=== PATIENT | female | born 1980 | race Hispanic/Latino ===

== ENCOUNTER 2019-11-21 21:03 | Emergency (ER) | payer SELFPAY ==
[~2019-11-21 21:03] MED LIST: Iopamidol 370 76% 100 ML VIAL ONE
[2019-11-21 22:16] LABS: Hemoglobin 14.1 g/dL (12.0-16.0); Mean Corpuscular HGB CONC 33.6 g/dL (32.0-36.0); Mean Corpuscular Hemoglobin 28.1 pg (27.0-31.0); Mean Corpuscular Volume 83.7 fL (78.0-98.0); Mean Platelet Volume 9.6 fL (7.4-10.4); Platelet Count 160 thou/uL (130-400); White Blood Cell (WBC) Count 8.1 thou/uL (4.8-10.8)
[2019-11-21 22:17] LABS: BHCG - Serum Negative (NEGATIVE); Pregs Control Background? CLEAR/WHITE (CLR/WHITE); Pregs Control Bar Appear? YES (CONTROL BAR)
[2019-11-21 22:32] LABS: ALT (SGPT) 17 U/L (8-55); AST (SGOT) 19 U/L (5-34); Alkaline Phosphatase 90 U/L (40-110); Anion Gap 13 mmol/L (10-20); BUN (Urea Nitrogen) 11 mg/dL (7.0-18.7); Bilirubin, Total Less than 0.2 mg/dL (0.2-1.2); Calc. Creatinine Clearance 0 mL/min (70-130); Carbon Dioxide 22 mmol/L (22-29); Chloride 106 mmol/L (98-107); Estimated GFR-MDRD 60; Globulin 3.4 g/dL (2.4-3.5); Glucose 138 mg/dL (70-105); Lipase 17 U/L (8-78); Potassium 4.4 mmol/L (3.5-5.1); Protein, Total 7.4 g/dL (6.0-8.3); Sodium 137 mmol/L (136-145)
[2019-11-21 22:38] LABS: Band 22 % (5-11); Lymphocytes 6 % (21-51); MDiff Complete? YES; Monocytes 4 % (0-10); Neutrophil 68 % (42-75); Platelet Morphology Comment Appears Adequate
[2019-11-21] MEDS ORDERED: Morphine 4 MG/ML VIAL ONE (22:45)
--- NOTE | 2019-11-22 10:00 | CT ---
CT ABDOMEN AND PELVIS PERFORMED WITH CONTRAST ENHANCEMENT: HISTORY: Left lower quadrant and suprapubic pain. FINDINGS: The lung bases are clear. The liver shows some mild fatty change. It measures 2 cm in length mainly related to somewhat elonga marquita-appearing right lobe. The spleen is within normal limits. The pancreas shows no evidence of mas s. Gallbladder region appears unremarkable. Right and left adrenal glands are normal. There is some cortical scarring involving both kidneys. B ilateral renal calculi are seen more prominent on the right. Some are punctate. Some of the larger calculi are in the 6 mm range. No obstruction or renal calculi. No significant periaortic or mesent miranda lymphadenopathy. There is colonic diverticulosis with inflammatory change related to the divert icular disease at the junction of the descending and sigmoid colon. There is a tiny area of containe d perforation. There is some minimal soft tissue density in this region. This is consistent with a small developing somewhat crescentic-shaped abscess collection. This measures only 4-5 mm in thickne ss. There is some free fluid within the pelvis associated with this. The endometrium is somewhat th ickened probably related to stage of menstrual cycle. The appendix is normal in appearance. IMPRESSION: 1. Diverticulitis at the junction of the sigmoid and descending colon. There is a tiny fluid collec tion with air seen adjacent to this area consistent with a small developing abscess. 2. Fatty changes of the liver which is borderline size. 3. Cortical scarring involving both kidneys with bilateral renal calculi. POS: [facility]
== END 2019-11-21 23:58 | disposition home or self-care (01) ==
LOC: ERS 21:03
DX: K57.32 Diverticulitis of large intestine without perforation or abscess without bleeding (principal); N94.6 Dysmenorrhea, unspecified; E03.9 Hypothyroidism, unspecified; I10 Essential (primary) hypertension; Z79.899 Other long term (current) drug therapy
CPT/HCPCS: 36415; 74177; 80053; 83605; 83690; 84703; 85025; 96374; J2270; Q9967

== ENCOUNTER 2019-11-23 21:51 | Inpatient (IN) | payer OTHER, SELFPAY ==
[2019-11-23] MEDS ORDERED: Morphine 4 MG/ML VIAL ONE (23:11)
[2019-11-23] MEDS ORDERED: metroNIDAZOLE 500 MG/100 ML BAG ONE (23:12)
[2019-11-23] MEDS ORDERED: Ciprofloxacin HCL/Dexameth Otic Drops 7.5 ml Bottle ONE (23:12)
[2019-11-23 23:21] LABS: Hemoglobin 12.9 g/dL (12.0-16.0); Mean Corpuscular HGB CONC 30.9 g/dL (32.0-36.0); Mean Corpuscular Hemoglobin 25.9 pg (27.0-31.0); Mean Platelet Volume 9.8 fL (7.4-10.4); Platelet Count 167 thou/uL (130-400); RBC Distribution Width 13.2 % (11.5-14.5); Red Blood Cell (RBC) Count 4.99 mill/uL (4.20-5.40)
[2019-11-23 23:22] LABS: ALT (SGPT) 17 U/L (8-55); AST (SGOT) 21 U/L (5-34); Albumin 3.8 g/dL (3.5-5.0); Alkaline Phosphatase 95 U/L (40-110); Anion Gap 16 mmol/L (10-20); BUN (Urea Nitrogen) 13 mg/dL (7.0-18.7); Band 30 % (5-11); Bilirubin, Total 0.4 mg/dL (0.2-1.2); Calc. Creatinine Clearance 0 mL/min (70-130); Calcium 9.1 mg/dL (7.8-10.44); Carbon Dioxide 21 mmol/L (22-29); Chloride 104 mmol/L (98-107); Estimated GFR-MDRD 57; Globulin 3.8 g/dL (2.4-3.5); Glucose 114 mg/dL (70-105); Lymphocytes 9 % (21-51); MDiff Complete? YES; Monocytes 3 % (0-10); Neutrophil 58 % (42-75); Platelet Morphology Comment Appears Adequate; Potassium 3.6 mmol/L (3.5-5.1); Protein, Total 7.6 g/dL (6.0-8.3); Sodium 137 mmol/L (136-145)
[2019-11-24] MEDS ORDERED: hydrALAZINE 20 MG/ML VIAL SLOW IVP PRN (01:07)
[2019-11-24] MEDS ORDERED: Ondansetron PF 4 MG/2 ML Vial IVP PRN (01:07)
[2019-11-24] MEDS ORDERED: Morphine 2 MG/ML SYRINGE SLOW IVP PRN (01:07)
[2019-11-24] MEDS ORDERED: Ondansetron ODT 4 MG TAB PO PRN (01:07)
--- NOTE | 2019-11-24 01:38 | HP ---
TIME: 0100 hours. HISTORY OF PRESENT ILLNESS: Meka Jeffers is a 39-year-old female, morbidly obese, had an onset of abdominal pain five days ago, presented to the emergency room two days ago, evaluated at a heart rate of 123, respiratory rate 18, and 99 degrees. White count of 8 and had a CAT scan on 11/21/2019, demonstrating changes of diverticulitis. She was discharged home prior to the official reading of the CAT scan. She was not sent home with any antibiotics. She is called back to the emergency room when this became apparent. She was called in the early afternoon 2 or 3 o'clock this afternoon, but arrived at midnight. She is complaining of pain over most of her abdomen, worse on her left side. Her white count now is 16,000 and hemoglobin 12. Basic metabolic profile is unremarkable. She had 30% bands. She is tachycardic to 120 to 130. She is 113 kg. The patient is 2, para 1, miscarriage 1 with her baby at five months of age. ALLERGIES: NONE. SOCIAL HISTORY: Tobacco none. Alcohol none. MEDICATIONS: 1. Levothyroxine. 2. Antihypertensive. PAST SURGICAL HISTORY: Noncontributory. PAST MEDICAL HISTORY: Hypertension. PHYSICAL EXAMINATION: VITAL SIGNS: 113 kg. Blood pressure 190/85, respiratory rate 18, and heart rate 110. HEAD, EARS, EYES, NOSE, AND THROAT: Unremarkable. The patient is morbidly obese. LUNGS: Clear to auscultation. No wheezing. CARDIAC: Sinus tachycardia. No murmur. No gallop. ABDOMEN: Obese and protuberant. Tenderness diffusely, more so left abdomen and left lower quadrant with guarding. EXTREMITIES: Unremarkable. No ankle edema. NEUROLOGIC: Intact. LYMPH: No lymphadenopathy in neck, axilla, or groins. ASSESSMENT AND PLAN: 1. Diverticulitis. She had a CAT scan two days ago, but she was diffusely tender with her leukocytosis and left shift. We will repeat her CAT scan, which she has received Zosyn at the least. She would be admitted for intravenous antibiotics and n.p.o., but pending her CAT scan, she may need emergent operative intervention. 2. Hypertension. 3. Morbid obesity. 4. Metabolic syndrome. Job ID: [id number]
[2019-11-24 02:09] VITALS: BMI 44.3
[2019-11-24] MEDS: Morphine 4 MG/ML VIAL SLOW IVP PRN ×4 (02:32→20:29)
[2019-11-24] MEDS: Ketorolac Tromethamine 30 MG/ML VIAL IVP PRN ×3 (02:32→20:29)
[2019-11-24] MEDS: Piperacillin/Tazobactam 4.5 GM in Sodium Chloride 0.9% 100 ML IVPB SCH ×4 (02:33→20:30)
[2019-11-24 06:12] LABS: ALT (SGPT) 16 U/L (8-55); AST (SGOT) 21 U/L (5-34); Albumin 3.1 g/dL (3.5-5.0); Alkaline Phosphatase 78 U/L (40-110); Anion Gap 13 mmol/L (10-20); BUN (Urea Nitrogen) 10 mg/dL (7.0-18.7); Bilirubin, Total 0.3 mg/dL (0.2-1.2); Calc. Creatinine Clearance 137 mL/min (70-130); Calcium 7.9 mg/dL (7.8-10.44); Carbon Dioxide 23 mmol/L (22-29); Chloride 104 mmol/L (98-107); Estimated GFR-MDRD 66; Globulin 3.2 g/dL (2.4-3.5); Glucose 103 mg/dL (70-105); Potassium 3.5 mmol/L (3.5-5.1); Protein, Total 6.3 g/dL (6.0-8.3); Sodium 136 mmol/L (136-145)
[2019-11-24] MEDS: Lactated Ringer's 1,000 ML IV SCH ×2 (06:39→17:00)
[2019-11-24] MEDS: Pantoprazole 40 MG VIAL IVP SCH (08:35)
--- NOTE | 2019-11-24 09:57 | CT ---
PRELIMINARY REPORT/[facility]/AFTER HOURS PROCEDURE CT ABDOMEN AND PELVIS WITH INTRAVENOUS CONTRAST: HISTORY: Patient presents with left upper and left lower quadrant pain. Patient was seen for the same pain 2 d ays ago. At that time she had normal labs. CT scan of her abdomen and pelvis was obtained. She was di scharged home in good condition. Her physician called her today to let her know that the CT scan show ed diverticulitis with a microperforation. He advised that she return to the ER for reevaluation. COMPARISON: 11/21/2019 FINDINGS: Lung bases: Small left lower lobe opacity again seen. Trace pleural effusions bilaterally. Minimal dependent atelectasis bilaterally. Mild cardiomegaly. Liver: Enlarged measuring 24.2 cm in length. No focal lesions. Gallbladder/bile ducts: Unremarkable. No calcified stone. No ductal dilation. Pancreas: Unremarkable. Spleen: Unremarkable. Adrenal glands: Unremarkable. Kidneys: Renal cortical scarring and multiple calculi bilaterally. No hydronephrosis or hydroureter. Stomach and bowel: Colonic diverticulosis. Acute diverticulitis of the descending/sigmoid colon junct ion is again seen. Increased pericolic fat stranding with mildly increased size of the adjacent C-sh aped air-containing fluid collection, measuring 1.7 (TR) x 5.8 (length) cm. No obstruction. Mid to lower abdominal small bowel loops are mildly thickened with mesenteric fat infiltration. Appendix: Normal-appearing appendix. No CT evidence for appendicitis. Retroperitoneum: Mild pelvic fluid. Lymph nodes: Multiple small mesenteric and ileocecal lymph nodes. Pelvic Organs: Unremarkable. Vasculature: No aortic aneurysm. Body wall: Tiny fat containing umbilical hernia. Bones: No fracture or suspicious osseous abnormality. IMPRESSION: 1. Persistent diverticulitis at descending/sigmoid colon junction, with increased surrounding inflamm ation. Adjacent fluid collection with air has mildly increased in size, consistent with developing a bscess. 2. Small bowel thickening with mesenteric fat infiltration, likely changes related to acute peritonit is. ELECTRONICALLY SIGNED BY: Libertad Weeks M.D. Nov 24, 2019 1:55:13 AM CDT This report is intended for review by the ordering physician only, in accordance of law. If you recei ve this report in error, please call [facility] at [phone]. FINAL REPORT CT ABDOMEN AND PELVIS: FINDINGS: Inflammatory change involving the lower descending colon in the left lower quadrant, consistent with diverticulitis, again noted. Small fluid collection and extraluminal gas is present, indicating small contained perforation and/or developing abscess. I am in agreement with the preliminary report. CODE QA POS: [facility]
[2019-11-24] MEDS ORDERED: Iopamidol-370 76% 500 ML 1 ML ONE (14:13)
--- NOTE | 2019-11-24 15:06 | PRG ---
DATE OF SERVICE: SUBJECTIVE: Meka Jeffers is doing much better today after being on antibiotics for less than 24 hours. She is afebrile. Heart rate 99 to 103. Labs were not rechecked. She is having left pain. Repeat CAT scan in the emergency room last night revealed absence of any findings of peritonitis or pneumoperitoneum or free fluid. She does have a very small fluid collection in her colon, probably 2 smaller drain 1 x 4.5 cm. We will discuss with Radiology tomorrow, but at this point, I think this should be managed with IV antibiotics and to improve her. Would continue her on bowel rest. At this time, ice chips. Encouraged out of bed and up in chair. Lovenox prophylaxis. OBJECTIVE: LUNGS: Clear to auscultation. CARDIAC: Regular rate and rhythm without murmur or gallop. ABDOMEN: Obese, soft. Much less tender with guarding in her left abdomen, more severe in her left lower quadrant. Abdomen is much less tender than last night. Job ID: [id number]
[2019-11-24] MEDS: Enoxaparin Sodium 40 MG/0.4 ML SYRINGE SC SCH (20:30)
[2019-11-25] MEDS: Lactated Ringer's 1,000 ML IV SCH ×2 (01:53→05:02)
[2019-11-25] MEDS: Piperacillin/Tazobactam 4.5 GM in Sodium Chloride 0.9% 100 ML IVPB SCH ×4 (01:58→19:51)
[2019-11-25] MEDS: Ketorolac Tromethamine 30 MG/ML VIAL IVP PRN ×2 (02:07→14:21)
[2019-11-25] MEDS: Morphine 4 MG/ML VIAL SLOW IVP PRN ×5 (02:07→23:53)
[2019-11-25 06:25] LABS: ALT (SGPT) 17 U/L (8-55); AST (SGOT) 27 U/L (5-34); Alkaline Phosphatase 70 U/L (40-110); Anion Gap 11 mmol/L (10-20); BUN (Urea Nitrogen) 10 mg/dL (7.0-18.7); Bilirubin, Total 0.6 mg/dL (0.2-1.2); Calc. Creatinine Clearance 163 mL/min (70-130); Calcium 7.9 mg/dL (7.8-10.44); Carbon Dioxide 24 mmol/L (22-29); Chloride 106 mmol/L (98-107); Estimated GFR-MDRD 80; Globulin 3.1 g/dL (2.4-3.5); Glucose 84 mg/dL (70-105); Protein, Total 6.1 g/dL (6.0-8.3); Sodium 138 mmol/L (136-145)
[2019-11-25] MEDS: Pantoprazole 40 MG VIAL IVP SCH (08:25)
[2019-11-25] MEDS ORDERED: Potassium Chloride 20 MEQ TAB PO SCH ×3 (09:00→22:00)
[2019-11-25 09:28] LABS: #Monocytes 0.4 thou/uL (0.11-0.59); #Neutrophils 4.6 thou/uL (1.40-6.50); %Basophils 0.5 % (0.0-1.0); %Eosinophils 0.2 % (0.0-10.0); %Lymphocytes 16.2 % (21.0-51.0); %Monocytes 7.2 % (0.0-10.0); Hemoglobin 12.2 g/dL (12.0-16.0); Mean Corpuscular Hemoglobin 27.5 pg (27.0-31.0); Mean Corpuscular Volume 85.9 fL (78.0-98.0); Mean Platelet Volume 8.9 fL (7.4-10.4); Platelet Count 157 thou/uL (130-400); RBC Distribution Width 13.3 % (11.5-14.5); Red Blood Cell (RBC) Count 4.45 mill/uL (4.20-5.40)
--- NOTE | 2019-11-25 13:59 | PRG ---
DATE OF SERVICE: 11/25/2019 SUBJECTIVE: Meka Jeffers is doing pretty well. She still complains of pain, although it is improved. OBJECTIVE: VITAL SIGNS: Temperature 98.9 degrees, heart rate 90, blood pressure 142/78. LUNGS: Clear to auscultation. CARDIAC: Regular rate and rhythm without murmur or gallop. ABDOMEN: Morbidly obese. Slight tenderness in her left lower quadrant abdomen with guarding, much improved from admission, but still significantly tender. LABORATORY DATA: White count this morning is 6, hemoglobin 12. Basic metabolic profile normal except for potassium 3.0, which is replaced for hypokalemia. ASSESSMENT AND PLAN: Diverticulitis. She has a small fluid collection. We will discuss with Radiology, but I doubt this can be successfully drained as small as is now. We will treat with intravenous antibiotics for now. Job ID: [id number]
[2019-11-25] MEDS: Enoxaparin Sodium 40 MG/0.4 ML SYRINGE SC SCH (19:52)
[2019-11-26] MEDS: Lactated Ringer's 1,000 ML IV SCH ×4 (00:28→18:16)
[2019-11-26] MEDS ORDERED: Guaifenesin DM 100-10/5 ML UDCUP PO PRN (00:30)
[2019-11-26] MEDS: Piperacillin/Tazobactam 4.5 GM in Sodium Chloride 0.9% 100 ML IVPB SCH ×4 (01:39→20:09)
[2019-11-26 05:55] LABS: #Lymphocytes 1.1 thou/uL (1.20-3.40); #Monocytes 0.4 thou/uL (0.11-0.59); #Neutrophils 4.2 thou/uL (1.40-6.50); %Basophils 0.3 % (0.0-1.0); %Eosinophils 0.1 % (0.0-10.0); %Lymphocytes 19.6 % (21.0-51.0); %Monocytes 6.1 % (0.0-10.0); %Neutrophils 73.9 % (42.0-75.0); Hemoglobin 11.7 g/dL (12.0-16.0); Mean Corpuscular HGB CONC 32.5 g/dL (32.0-36.0); Mean Corpuscular Hemoglobin 27.4 pg (27.0-31.0); Mean Corpuscular Volume 84.4 fL (78.0-98.0); Mean Platelet Volume 8.5 fL (7.4-10.4); Platelet Count 163 thou/uL (130-400); RBC Distribution Width 13.4 % (11.5-14.5); Red Blood Cell (RBC) Count 4.25 mill/uL (4.20-5.40); White Blood Cell (WBC) Count 5.8 thou/uL (4.8-10.8)
[2019-11-26 06:15] LABS: Anion Gap 12 mmol/L (10-20); BUN (Urea Nitrogen) 8 mg/dL (7.0-18.7); Calc. Creatinine Clearance 169 mL/min (70-130); Calcium 7.7 mg/dL (7.8-10.44); Carbon Dioxide 22 mmol/L (22-29); Chloride 104 mmol/L (98-107); Estimated GFR-MDRD 84; Glucose 99 mg/dL (70-105); Potassium 3.5 mmol/L (3.5-5.1); Sodium 134 mmol/L (136-145)
[2019-11-26] MEDS: Diabetic Tussin DM 5 ML UDCUP PO PRN ×3 (06:44→14:29)
[2019-11-26] MEDS: Pantoprazole 40 MG VIAL IVP SCH (08:07)
[2019-11-26 12:28] LABS: SARS-CoV-2 MS2 Positive; SARS-CoV-2 N Gene Positive; SARS-CoV-2 S Gene Positive; SARS-CoV-2 orf1ab Positive
--- NOTE | 2019-11-26 14:01 | RAD ---
PORTABLE CHEST: HISTORY: Shortness of breath. COVID positive. COMPARISON: 06/18/2012 film. FINDINGS: There are bilateral patchy peripheral infiltrates consistent with the history of COVID pneumonia. IMPRESSION: Bilateral patchy alveolar peripheral infiltrates throughout both lungs. POS: AH
[2019-11-26] MEDS ORDERED: REMDESIVIR IV SCH (17:15)
[2019-11-26] MEDS ORDERED: SODIUM CHLORIDE 0.9% IV SCH (17:15)
--- NOTE | 2019-11-26 17:23 | PDOC.HOSPP ---
- Subjective Encounter Date: 11/26/19 Encounter Time: 17:00 Subjective: Pt. seen for management of medical comorbidities. Denies any complaints other than being hungry and a slight dry cough. - Objective Vital Signs & Weight: Vital Signs (12 hours) Temp Pulse Resp BP Pulse Ox 11/26/19 13:00 98.5 F 90 20 140/97 H 96 11/26/19 09:00 98.2 F 91 20 142/87 H 94 L 11/26/19 08:00 94 L Weight Weight 242 lb 6.4 oz I&O: 11/25/19 11/26/19 11/27/19 06:59 06:59 06:59 Intake Total 1200 2840 Balance 1200 2840 Result Diagrams: 11/26/19 05:34 11/26/19 05:34 Radiology Reviewed by me: Yes (Chest xray: bilateral patchy alveolar peripheral infiltrates throughout) Hospitalist ROS - Review of Systems Constitutional: denies: fever, chills, sweats, weakness, malaise, other Eyes: denies: pain, vision change, conjunctivae inflammation, eyelid inflammation, redness, other ENT: denies: ear pain, ear discharge, nose pain, nose discharge, nose congestion , mouth pain, mouth swelling, throat pain, throat swelling, other Respiratory: reports: cough, dry Cardiovascular: denies: chest pain, palpitations, orthopnea, paroxysmal noc. dyspnea, edema, light headedness, other Gastrointestinal: denies: nausea, vomiting, abdominal pain, diarrhea, constipation, melena, hematochezia, other Genitourinary: denies: dysuria, frequency, incontinence, hematuria, retention, other Musculoskeletal: denies: neck pain, shoulder pain, arm pain, back pain, hand pain, leg pain, foot pain, other Skin: denies: rash, lesions, tenzin, bruising, other Neurological: denies: weakness, numbness, incoordination, change in speech, confusion, seizures, other All other systems reviewed; all pertinent +/- noted in HPI/Subj - Medication Medications: NKDA Active Medications Generic Name Dose Route Start Last Admin Trade Name Freq PRN Reason Stop Dose Admin Enoxaparin Sodium 40 mg 11/24/19 21:00 11/25/19 19:52 Lovenox SC 40 mg 2100 KRISTY Administration Guaifenesin/Dextromethorphan 10 ml 11/26/19 06:35 11/26/19 14:29 Diabetic Tussin Dm PO 10 ml Q4H PRN Administration Cough Lactated Ringer's 1,000 mls @ 150 mls/hr 11/24/19 01:15 11/26/19 12:43 Lactated Ringer's IV 1,000 mls .[id number] KRISTY Administration Piperacillin Sod/Tazobactam 100 mls @ 200 mls/hr 11/24/19 02:00 11/26/19 12: 48 Sod 4.5 gm/ Sodium Chloride IVPB 100 mls 0200,0800,1400,2000 KRISTY Administration Ketorolac Tromethamine 30 mg 11/24/19 01:10 11/25/19 14:21 Toradol IVP 11/29/19 01:11 30 mg Q6H PRN Administration Pain Morphine Sulfate 4 mg 11/24/19 01:07 11/25/19 23:53 Morphine SLOW IVP 4 mg Q2H PRN Administration Moderate Pain (4-6) Pantoprazole Sodium 40 mg 11/24/19 09:00 11/26/19 08:07 Protonix IVP 40 mg DAILY KRISTY Administration - Exam General Appearance: NAD, awake alert Eye: PERRL, anicteric sclera ENT: normocephalic atraumatic, moist mucosa Neck: supple, no JVD, no lymphadenopathy Heart: RRR, no murmur, no gallops, no rubs Respiratory: CTAB, no wheezes, no rales, no ronchi, normal chest expansion Respiratory - other findings: cough Gastrointestinal: soft, non-tender, non-distended Extremities: no cyanosis, no edema Psychiatric: normal affect, normal behavior Hosp A/P (1) COVID-19 Code(s): U07.1 - COVID-19 Status: Acute (2) Hypothyroid Code(s): E03.9 - HYPOTHYROIDISM, UNSPECIFIED Status: Chronic (3) HTN (hypertension) Code(s): I10 - ESSENTIAL (PRIMARY) HYPERTENSION Status: Chronic - Plan Covid 19 positive test, dry cough, lungs CTAB ID consulted ferritin, CRP and d-dimer ordered PRN cough medication available Hypothyroidism restart home medication HTN stable at this time K was low this am, can restart HCTZ once level stabilized GI and VTE prophylaxis in place pt discussed with Dr. Gamez
--- NOTE | 2019-11-26 17:29 | PRG ---
DATE OF SERVICE: 11/26/2019 SUBJECTIVE: 100.2 degrees, 99, 18, 140/97. Her white count this morning is 5.8, hemoglobin 11.7. Basic metabolic profile essentially normal. The patient last night was complaining of cough. The nurse called me and she was given Robitussin. The chest x-ray ordered this morning and a COVID test ordered. COVID results returned positive. Chest x-ray reveals diffuse infiltrates consistent with COVID. The patient states that she feels better regarding her diverticulitis and left-sided abdominal pain. The CAT scan was reviewed with Radiology. She has extra colonic punctate free air that is loculated adjacent to the diverticulitis process. There is a scant amount of fluid, but nothing large enough to percutaneously drain. OBJECTIVE: LUNGS: Clear to auscultation, rhonchi diffusely. CARDIAC: Regular rate and rhythm. ABDOMEN: Obese, less tender than previously. Today, mild tenderness in left mid to lower abdomen. Guarding much less severe. ASSESSMENT AND PLAN: 1. COVID positive with diffuse pulmonary infiltrates. Consult Dr. Mauro and Medical. 2. Diverticulitis. The patient has an extra colonic collection that should resolve with antibiotics. Percutaneous drainage is not appropriate as the fluid collection is so small. Clinically, she is doing better from her diverticulitis and would continue intravenous antibiotics that may be adjusted by Dr. Mauro. No indication for surgery or procedures at this time and this should resolve with antibiotics, although repeat CAT scan could be considered pending clinical course. We would like to avoid repeat CAT scans unless absolutely necessary. 3. Morbid obesity, 44 BMI, 242 pounds, 5 feet 2 inches. Job ID: [id number]
[2019-11-26] MEDS: Benzonatate 100 MG CAP PO PRN ×2 (18:16→20:47)
--- NOTE | 2019-11-26 19:57 | CON ---
DATE OF CONSULTATION: 11/26/2019 REASON FOR CONSULTATION: COVID pneumonia and diverticulitis. HISTORY OF PRESENT ILLNESS: A 39-year-old who has a previous episode of abdominal pain in the left lower quadrant, which she treated at home with ibuprofen about 6 months ago. She got better and then she developed recrudescence of that pain this past . This was about 2 days before admission, so she started to take ibuprofen, but this time it did not get better. She went to the emergency room and a CT scan showed diverticulitis with microperforation, so she was returned to the ER and at that time, she was not having cough, but she was having chills, but no fever. She had general malaise and had some frequent bowel movements. No genitourinary symptoms. No joint symptoms or skin disorder. PAST MEDICAL HISTORY: Hypothyroidism, obesity, hypertension. SOCIAL HISTORY: Lives with her 2 children and her in [place]. Never smoker. ALLERGIES: NONE. MEDICATION: Levothyroxine. CURRENT MEDICATIONS: 1. Lovenox. 2. Apresoline. 3. Toradol. 4. Morphine. 5. Zofran. 6. Protonix. 7. Zosyn. PHYSICAL EXAMINATION: VITAL SIGNS: 101.1, O2 sats have ranged from 97 on arrival, now they are trending down. She had to be started on O2 per nasal cannula. SKIN: Normal. She has a peripheral IV access and she is voiding in the toilet. LYMPH: No lymphadenopathy. HEENT: Ocular movements conjugate. Oral cavity normal. NECK: Supple. LUNGS: Symmetric air entry. I did not perceive any obvious crackles or wheezing. CARDIAC: S1-S2 regular rate. ABDOMEN: With moderate tenderness in the left lower quadrant with guarding. No ascites. No bladder distention. GENITOURINARY: No genital abnormalities. EXTREMITIES: No joint inflammatory activity. Moves extremities equally. Cognitive function appears to be intact. She speaks in full sentences and is oriented. LABORATORY DATA: White cell count 16,000 down to 5.8, hemoglobin 11.7, platelets 163. Sodium 134, creatinine 0.76 and transaminases normal. COVID positive. IMAGING: Chest x-ray with diffuse bilateral infiltrates. Abdomen and pelvis CT with persistent diverticulitis, increasing surrounding inflammation, adjacent fluid collection with air, mildly increased in size. Small bowel thickening with mesenteric fat infiltration. ASSESSMENT: 1. Acute diverticulitis with microperforation. 2. COVID pneumonia. DISCUSSION: The patient is responding to antimicrobial therapy and hopefully can be transitioned eventually to oral Cipro and Flagyl combination for outpatient management. In relationship with the COVID, we will go and start remdesivir and monitor clinical progress. I am going to withhold corticosteroids, because of her diverticulitis but may have to start Decadron. Job ID: [id number]
[2019-11-26] MEDS: Enoxaparin Sodium 40 MG/0.4 ML SYRINGE SC SCH (20:10)
[2019-11-26] MEDS: Ketorolac Tromethamine 30 MG/ML VIAL IVP PRN (23:59)
[2019-11-27] MEDS: Lactated Ringer's 1,000 ML IV SCH ×2 (00:25→06:26)
[2019-11-27] MEDS: Piperacillin/Tazobactam 4.5 GM in Sodium Chloride 0.9% 100 ML IVPB SCH ×4 (02:36→20:30)
[2019-11-27] MEDS: Levothyroxine Sodium 25 MCG TAB PO SCH (06:23)
[2019-11-27 07:28] LABS: ALT (SGPT) 29 U/L (8-55); AST (SGOT) 41 U/L (5-34); Alkaline Phosphatase 76 U/L (40-110); Anion Gap 11 mmol/L (10-20); BUN (Urea Nitrogen) 7 mg/dL (7.0-18.7); Bilirubin, Direct 0.5 mg/dL (0.1-0.3); Bilirubin, Total 0.6 mg/dL (0.2-1.2); Calc. Creatinine Clearance 176 mL/min (70-130); Calcium 8.2 mg/dL (7.8-10.44); Carbon Dioxide 27 mmol/L (22-29); Chloride 105 mmol/L (98-107); Estimated GFR-MDRD 88; Glucose 98 mg/dL (70-105); Potassium 3.7 mmol/L (3.5-5.1); Protein, Total 6.1 g/dL (6.0-8.3); Sodium 139 mmol/L (136-145)
[2019-11-27] MEDS ORDERED: Dexamethasone 20 MG/5 ML VIAL SLOW IVP SCH (09:00)
[2019-11-27] MEDS: Ketorolac Tromethamine 30 MG/ML VIAL IVP PRN ×2 (09:58→17:42)
[2019-11-27] MEDS: Pantoprazole 40 MG VIAL IVP SCH (09:59)
[2019-11-27] MEDS: Benzonatate 100 MG CAP PO PRN ×2 (10:07→21:32)
[2019-11-27] MEDS ORDERED: SODIUM CHLORIDE 0.9% IV SCH (12:00)
[2019-11-27] MEDS ORDERED: REMDESIVIR IV SCH (12:00)
[2019-11-27] MEDS ORDERED: HYDROcodone/Chlorphen Polis 5 ML UDCUP PO PRN (16:01)
[2019-11-27] MEDS ORDERED: Acetaminophen 325 MG TAB PO PRN (16:02)
--- NOTE | 2019-11-27 16:04 | PDOC.HOSPP ---
- Subjective Encounter Date: 11/27/19 Subjective: Patient is generally feeling well. She continues to have some cough. She is also having some pain in the lower back. She believes that from lying up in the bed too much. She does not feel significantly short of breath. She is scared about her COVID diagnosis. - Objective Vital Signs & Weight: Vital Signs (12 hours) Temp Pulse Resp BP Pulse Ox 11/27/19 09:00 98.2 F 88 16 156/94 H 96 Weight Weight 242 lb 6.4 oz I&O: 11/26/19 11/27/19 11/28/19 06:59 06:59 06:59 Intake Total 2840 2450 Balance 2840 2450 Result Diagrams: 11/26/19 05:34 11/27/19 06:49 Hospitalist ROS - Medication Medications: Active Medications Generic Name Dose Route Start Last Admin Trade Name Freq PRN Reason Stop Dose Admin Benzonatate 100 mg 11/26/19 17:18 11/27/19 10:07 Tessalon PO 100 mg TIDPRN PRN Administration Cough Enoxaparin Sodium 40 mg 11/24/19 21:00 11/26/19 20:10 Lovenox SC 40 mg 2100 KRISTY Administration Guaifenesin/Dextromethorphan 10 ml 11/26/19 06:35 11/26/19 14:29 Diabetic Tussin Dm PO 10 ml Q4H PRN Administration Cough Piperacillin Sod/Tazobactam 100 mls @ 200 mls/hr 11/24/19 02:00 11/27/19 14: 45 Sod 4.5 gm/ Sodium Chloride IVPB 100 mls 0200,0800,1400,2000 KRISTY Administration Ketorolac Tromethamine 30 mg 11/24/19 01:10 11/27/19 09:58 Toradol IVP 11/29/19 01:11 30 mg Q6H PRN Administration Pain Levothyroxine Sodium 25 mcg 11/27/19 06:00 11/27/19 06:23 Synthroid PO 25 mcg 0600 KRISTY Administration Morphine Sulfate 4 mg 11/24/19 01:07 11/25/19 23:53 Morphine SLOW IVP 4 mg Q2H PRN Administration Moderate Pain (4-6) Pantoprazole Sodium 40 mg 11/24/19 09:00 11/27/19 09:59 Protonix IVP 40 mg DAILY KRISTY Administration - Exam General Appearance: NAD, awake alert Heart: RRR, no murmur, no gallops, no rubs, normal peripheral pulses Respiratory: CTAB, no wheezes, no rales, no ronchi, normal chest expansion, no tachypnea, normal percussion Gastrointestinal: soft, non-tender, non-distended, normal bowel sounds, no palpable masses, no hepatomegaly, no splenomegaly, no bruit Skin: normal turgor Musculoskeletal: normal tone Psychiatric: normal affect, normal behavior, A&O x 3 Hosp A/P (1) Diverticulitis of colon with perforation Code(s): K57.20 - DVTRCLI OF LG INT W PERFORATION AND ABSCESS W/O BLEEDING Status: Acute (2) COVID-19 Code(s): U07.1 - COVID-19 Status: Acute (3) HTN (hypertension) Code(s): I10 - ESSENTIAL (PRIMARY) HYPERTENSION Status: Chronic (4) Hypothyroid Code(s): E03.9 - HYPOTHYROIDISM, UNSPECIFIED Status: Chronic (5) Acute respiratory failure with hypoxia Code(s): J96.01 - ACUTE RESPIRATORY FAILURE WITH HYPOXIA Status: Acute (6) Morbid obesity Code(s): E66.01 - MORBID (SEVERE) OBESITY DUE TO EXCESS CALORIES Status: Acute - Plan Diverticulitis with small perforation: Patient has some small perforation with a very small fluid collection. Appears to be too small to be drained. Clinically she appears to be substantially better. Continue with antibiotics. She is not significantly tender on her abdominal exam. I have discussed the case with surgery. We will take over the care of this patient at this point as it appears she does not require surgical intervention. We will keep her on IV antibiotics today. She is on clear liquids. Anticipate advancing her diet tomorrow. Once she is able to tolerate regular diet we can then switch her over to oral antibiotics with Cipro and Flagyl. COVID-19 pneumonia: Patient is on remdesivir. Discussed the case with ID. Holding off on dexamethasone giving her diverticulitis. She will need full 5 days of remdesivir. Today was dose 1. We will add some Tussionex for cough suppression at her request. Acute hypoxic respiratory failure: Continue with supplemental oxygen as needed. Requirements are still relatively low. Morbid obesity: Stable Hypertension: She was on hydrochlorothiazide at home. Holding that for now. Hypothyroidism: Continue levothyroxine.
[2019-11-27] MEDS ORDERED: REMDESIVIR 100 MG in Sodium Chloride 0.9% 250 ML 230 ML IV SCH (17:00)
[2019-11-27] MEDS ORDERED: Guaifenesin DM 100-10/5 ML UDCUP PO PRN (18:00)
--- NOTE | 2019-11-27 18:02 | PRG ---
DATE OF SERVICE: 11/27/2019 SUBJECTIVE: The patient is still having some pain in the left lower quadrant. She grades it 2/10. No vomiting. She is comfortable at rest without dyspnea, coughing intermittently. OBJECTIVE: VITAL SIGNS: Showed a normalization of temperature. Her O2 saturations are up to 96. The flow rate is stable at anywhere from 1 to 2. Her respiratory rate is at 16. LUNGS: The exam shows symmetric clear breath sounds. HEART: S1 and S2. Regular rate. ABDOMEN: With tenderness in the left lower quadrant, which is moderate. EXTREMITIES: She moves extremities equally. LABORATORY DATA: White cell count is down to 5.8, hemoglobin 11.7. D-dimer 3.15, the CRP is 19.12. She received remdesivir, but is not on Decadron because of the infectious process and the fact that she has mild disease, it looks like, and I think this has been the right decision thus far. We will continue just with remdesivir, the antimicrobial therapy with Zosyn, eventual conversion to the usual combination for diverticulitis. She does have a small perforation, so a little longer treatment course. Job ID: [id number]
--- NOTE | 2019-11-27 18:03 | PRG ---
DATE OF SERVICE: 11/27/2019 SUBJECTIVE: Meka Jeffers is doing well today. She denies having abdominal pain. She is tolerating her liquids. She is coughing occasionally. OBJECTIVE: VITAL SIGNS: Temperature 98.2 degrees; pulse 88; blood pressure 156/94; and on 2 L nasal cannula, 96% sat. ABDOMEN: Obese, soft, tenderness in her left lateral abdomen. Varices are very minimal. Guarding has resolved. ASSESSMENT AND PLAN: Diverticulitis, perforated, with small focus of extraluminal air and fluid too small to consider CT-guided drainage. This should resolve with antibiotics. I would recommend IV antibiotics today, and she can be transitioned to oral antibiotics at any time per Dr. Mauro. She should be on oral antibiotics as an outpatient for 10 to 14 days. She could follow up in my office in 3 to 4 weeks. I would not plan to re-image her abdomen with a CAT scan unless she developed increasing abdominal pain. I would recommend that she have a colonoscopy in 2 to 3 months now outpatient. I will be glad to see her in 3 to 6 weeks postoperatively in the office. At this point, I have spoken with Dr. oJvani Gamez, and he has agreed to take the patient on to the Hospitalist Service, and I will see her as needed. Please call if necessary. We would recommend low-fiber diet for 2 to 3 weeks, transition to high-fiber diet. Job ID: [id number]
[2019-11-27] MEDS: Diabetic Tussin DM 5 ML UDCUP PO PRN (19:11)
[2019-11-27] MEDS: Enoxaparin Sodium 40 MG/0.4 ML SYRINGE SC SCH (20:31)
[2019-11-27] MEDS: Morphine 4 MG/ML VIAL SLOW IVP PRN (21:34)
[2019-11-28] MEDS: Piperacillin/Tazobactam 4.5 GM in Sodium Chloride 0.9% 100 ML IVPB SCH ×4 (01:02→20:56)
[2019-11-28] MEDS: Levothyroxine Sodium 25 MCG TAB PO SCH (06:16)
[2019-11-28] MEDS: Ketorolac Tromethamine 30 MG/ML VIAL IVP PRN (06:23)
[2019-11-28] MEDS: Benzonatate 100 MG CAP PO PRN ×2 (06:24→14:28)
[2019-11-28 07:32] LABS: ALT (SGPT) 34 U/L (8-55); AST (SGOT) 44 U/L (5-34); Albumin 3.2 g/dL (3.5-5.0); Alkaline Phosphatase 92 U/L (40-110); Anion Gap 12 mmol/L (10-20); BUN (Urea Nitrogen) 7 mg/dL (7.0-18.7); Bilirubin, Direct 0.5 mg/dL (0.1-0.3); Bilirubin, Total 0.7 mg/dL (0.2-1.2); Calc. Creatinine Clearance 186 mL/min (70-130); Carbon Dioxide 23 mmol/L (22-29); Chloride 104 mmol/L (98-107); Estimated GFR-MDRD Greater than 90; Glucose 99 mg/dL (70-105); Protein, Total 6.5 g/dL (6.0-8.3); Sodium 136 mmol/L (136-145)
[2019-11-28] MEDS: Pantoprazole 40 MG VIAL IVP SCH (09:20)
[2019-11-28] MEDS: Morphine 4 MG/ML VIAL SLOW IVP PRN ×2 (10:56→17:18)
[2019-11-28] MEDS: REMDESIVIR 100 MG in Sodium Chloride 0.9% 250 ML 230 ML IV SCH (12:45)
[2019-11-28] MEDS: Diabetic Tussin DM 5 ML UDCUP PO PRN (12:46)
--- NOTE | 2019-11-28 15:17 | PDOC.HOSPP ---
- Subjective Encounter Date: 11/28/19 Subjective: Patient is doing generally well. She continues to cough. The cough medicine does seem to help. Occasionally reports some pain in the left lower abdomen and pelvis area. - Objective Vital Signs & Weight: Vital Signs (12 hours) Temp Pulse Resp BP Pulse Ox 11/28/19 12:54 98.2 F 83 20 161/98 H 92 L 11/28/19 09:05 97.7 F 81 20 160/93 H 94 L 11/28/19 08:00 94 L Weight Weight 242 lb 6.4 oz I&O: 11/27/19 11/28/19 11/29/19 06:59 06:59 06:59 Intake Total 4150 2580 Balance 4150 2580 Result Diagrams: 11/26/19 05:34 11/28/19 06:37 Hospitalist ROS - Medication Medications: Active Medications Generic Name Dose Route Start Last Admin Trade Name Freq PRN Reason Stop Dose Admin Benzonatate 100 mg 11/26/19 17:18 11/28/19 14:28 Tessalon PO 100 mg TIDPRN PRN Administration Cough Chlorphenir/Hydrocodone Polistirex 5 ml 11/27/19 16:01 11/28/19 00:51 Tussionex PO 5 ml Q12H PRN Administration Cough Enoxaparin Sodium 40 mg 11/24/19 21:00 11/27/19 20:31 Lovenox SC 40 mg 2100 KRISTY Administration Guaifenesin/Dextromethorphan 10 ml 11/27/19 18:00 11/28/19 12:46 Diabetic Tussin Dm PO 10 ml Q4H PRN Administration Cough Piperacillin Sod/Tazobactam 100 mls @ 200 mls/hr 11/24/19 02:00 11/28/19 14: 27 Sod 4.5 gm/ Sodium Chloride IVPB 100 mls 0200,0800,1400,2000 KRISTY Administration Remdesivir 100 Mg In 250 mls @ 250 mls/hr 11/28/19 12:00 11/28/19 12:45 Sodium Chloride 0.9 IV 12/01/19 12:59 250 mls % 250 Ml 230 Ml 1200 KRISTY Administration Ketorolac Tromethamine 30 mg 11/24/19 01:10 11/28/19 06:23 Toradol IVP 11/29/19 01:11 30 mg Q6H PRN Administration Pain Levothyroxine Sodium 25 mcg 11/27/19 06:00 11/28/19 06:16 Synthroid PO 25 mcg 0600 KRISTY Administration Morphine Sulfate 4 mg 11/24/19 01:07 11/28/19 10:56 Morphine SLOW IVP 4 mg Q2H PRN Administration Moderate Pain (4-6) Pantoprazole Sodium 40 mg 11/24/19 09:00 11/28/19 09:20 Protonix IVP 40 mg DAILY KRISTY Administration - Exam General Appearance: NAD, awake alert General - other findings: Morbid obesity Heart: RRR, no murmur, no gallops, no rubs, normal peripheral pulses Respiratory: CTAB, no wheezes, no rales, no ronchi, normal chest expansion, no tachypnea, normal percussion Gastrointestinal: soft, non-distended, normal bowel sounds, no palpable masses, no hepatomegaly, no splenomegaly, no bruit, tender to palpation (Left lower quadrant) Extremities: no cyanosis, no clubbing, no edema Skin: normal turgor Neurological: no focal deficits Musculoskeletal: normal tone, normal strength, no muscle wasting Psychiatric: normal affect, normal behavior, A&O x 3 Hosp A/P (1) Diverticulitis of colon with perforation Code(s): K57.20 - DVTRCLI OF LG INT W PERFORATION AND ABSCESS W/O BLEEDING Status: Acute (2) COVID-19 Code(s): U07.1 - COVID-19 Status: Acute (3) HTN (hypertension) Code(s): I10 - ESSENTIAL (PRIMARY) HYPERTENSION Status: Chronic (4) Hypothyroid Code(s): E03.9 - HYPOTHYROIDISM, UNSPECIFIED Status: Chronic (5) Acute respiratory failure with hypoxia Code(s): J96.01 - ACUTE RESPIRATORY FAILURE WITH HYPOXIA Status: Acute (6) Morbid obesity Code(s): E66.01 - MORBID (SEVERE) OBESITY DUE TO EXCESS CALORIES Status: Acute - Plan Diverticulitis with small perforation: Patient has some small perforation with a very small fluid collection. Appears to be too small to be drained. Clinically she appears to be substantially better. Continue with antibiotics. She is not significantly tender on her abdominal exam. I have discussed the case with surgery. We will take over the care of this patient at this point as it appears she does not require surgical intervention. We will keep her on IV antibiotics. She is on clear liquids. We will advance her diet. She does not have much of an appetite presently. COVID-19 pneumonia: Patient is on remdesivir. Today is day 2 of 5. Discussed the case with ID. Holding off on dexamethasone giving her diverticulitis. She will need full 5 days of remdesivir. Today was dose 1. We will add some Tussionex for cough suppression at her request. Her d-dimer is elevated. Avoiding aggressive anticoagulation in light of her diverticular rupture. Acute hypoxic respiratory failure: Continue with supplemental oxygen as needed. Requirements are still relatively low. Morbid obesity: Stable Hypertension: She was on hydrochlorothiazide at home. Blood pressure is running high here. We will reinstitute her home meds. Hypothyroidism: Continue levothyroxine.
[2019-11-28] MEDS: Enoxaparin Sodium 40 MG/0.4 ML SYRINGE SC SCH (20:57)
[2019-11-29] MEDS: Piperacillin/Tazobactam 4.5 GM in Sodium Chloride 0.9% 100 ML IVPB SCH ×4 (02:15→20:50)
[2019-11-29] MEDS: Levothyroxine Sodium 25 MCG TAB PO SCH (05:35)
[2019-11-29] MEDS: Benzonatate 100 MG CAP PO PRN ×2 (05:37→14:00)
[2019-11-29 06:09] LABS: ALT (SGPT) 26 U/L (8-55); AST (SGOT) 25 U/L (5-34); Albumin 3.1 g/dL (3.5-5.0); Alkaline Phosphatase 87 U/L (40-110); Anion Gap 13 mmol/L (10-20); BUN (Urea Nitrogen) 8 mg/dL (7.0-18.7); Bilirubin, Direct 0.4 mg/dL (0.1-0.3); Bilirubin, Total 0.6 mg/dL (0.2-1.2); Calc. Creatinine Clearance 184 mL/min (70-130); Calcium 8.3 mg/dL (7.8-10.44); Carbon Dioxide 26 mmol/L (22-29); Chloride 104 mmol/L (98-107); Estimated GFR-MDRD Greater than 90; Glucose 112 mg/dL (70-105); Potassium 3.2 mmol/L (3.5-5.1); Protein, Total 6.4 g/dL (6.0-8.3); Sodium 140 mmol/L (136-145)
[2019-11-29] MEDS: Pantoprazole 40 MG VIAL IVP SCH (08:27)
[2019-11-29] MEDS: Hydrochlorothiazide 25 MG TAB PO SCH (08:27)
[2019-11-29] MEDS: Morphine 4 MG/ML VIAL SLOW IVP PRN ×2 (08:47→21:06)
[2019-11-29] MEDS: REMDESIVIR 100 MG in Sodium Chloride 0.9% 250 ML 230 ML IV SCH (11:43)
--- NOTE | 2019-11-29 12:07 | PDOC.HOSPP ---
- Subjective Encounter Date: 11/29/19 Subjective: Feeling better. She feels like she is at her baseline. Feels confident she will be ready to go home once the antivirals are completed. Denies any shortness of breath. Denies any abdominal pain. - Objective Vital Signs & Weight: Vital Signs (12 hours) Temp Pulse Resp BP Pulse Ox 11/29/19 08:00 97.9 F 77 20 170/95 H 93 L 11/29/19 04:00 98.3 F 80 18 137/76 Weight Weight 242 lb 6.4 oz I&O: 11/28/19 11/29/19 11/30/19 06:59 06:59 06:59 Intake Total 2580 1550 240 Balance 2580 1550 240 Result Diagrams: 11/26/19 05:34 11/29/19 05:40 Hospitalist ROS - Medication Medications: Active Medications Generic Name Dose Route Start Last Admin Trade Name Freq PRN Reason Stop Dose Admin Benzonatate 100 mg 11/26/19 17:18 11/29/19 05:37 Tessalon PO 100 mg TIDPRN PRN Administration Cough Chlorphenir/Hydrocodone Polistirex 5 ml 11/27/19 16:01 11/28/19 00:51 Tussionex PO 5 ml Q12H PRN Administration Cough Enoxaparin Sodium 40 mg 11/24/19 21:00 11/28/19 20:57 Lovenox SC 40 mg 2100 KRISTY Administration Guaifenesin/Dextromethorphan 10 ml 11/27/19 18:00 11/28/19 12:46 Diabetic Tussin Dm PO 10 ml Q4H PRN Administration Cough Hydrochlorothiazide 25 mg 11/29/19 09:00 11/29/19 08:27 Hydrochlorothiazide PO 25 mg DAILY KRISTY Administration Piperacillin Sod/Tazobactam 100 mls @ 200 mls/hr 11/24/19 02:00 11/29/19 08: 27 Sod 4.5 gm/ Sodium Chloride IVPB 100 mls 0200,0800,1400,2000 KIRSTY Administration Remdesivir 100 Mg In 250 mls @ 250 mls/hr 11/28/19 12:00 11/29/19 11:43 Sodium Chloride 0.9 IV 12/01/19 12:59 250 mls % 250 Ml 230 Ml 1200 KRISTY Administration Levothyroxine Sodium 25 mcg 07/01/20 06:00 11/29/19 05:35 Synthroid PO 25 mcg 0600 KRISTY Administration Morphine Sulfate 4 mg 11/24/19 01:07 11/29/19 08:47 Morphine SLOW IVP 4 mg Q2H PRN Administration Moderate Pain (4-6) Pantoprazole Sodium 40 mg 11/24/19 09:00 11/29/19 08:27 Protonix IVP 40 mg DAILY KRISTY Administration Sodium Chloride 10 ml 11/24/19 01:07 11/29/19 08:28 Flush - Normal Saline IVF 10 ml PRN PRN Administration Saline Flush - Exam General Appearance: NAD, awake alert General - other findings: Morbidly obese Heart: RRR, no murmur, no gallops, no rubs, normal peripheral pulses Respiratory: CTAB, no wheezes, no rales, no ronchi, normal chest expansion, no tachypnea, normal percussion Gastrointestinal: soft, non-tender, non-distended, normal bowel sounds, no palpable masses, no hepatomegaly, no splenomegaly, no bruit Extremities: no cyanosis Skin: normal turgor Musculoskeletal: normal tone Psychiatric: normal affect, normal behavior, A&O x 3 Hosp A/P (1) Diverticulitis of colon with perforation Code(s): K57.20 - DVTRCLI OF LG INT W PERFORATION AND ABSCESS W/O BLEEDING Status: Acute (2) COVID-19 Code(s): U07.1 - COVID-19 Status: Acute (3) HTN (hypertension) Code(s): I10 - ESSENTIAL (PRIMARY) HYPERTENSION Status: Chronic (4) Hypothyroid Code(s): E03.9 - HYPOTHYROIDISM, UNSPECIFIED Status: Chronic (5) Acute respiratory failure with hypoxia Code(s): J96.01 - ACUTE RESPIRATORY FAILURE WITH HYPOXIA Status: Acute (6) Morbid obesity Code(s): E66.01 - MORBID (SEVERE) OBESITY DUE TO EXCESS CALORIES Status: Acute - Plan Diverticulitis with small perforation: Patient has some small perforation with a very small fluid collection. Appears to be too small to be drained. Clinically she appears to be substantially better. Continue with antibiotics. She is not significantly tender on her abdominal exam. She is doing so well that I will likely be able to convert her over to oral antibiotics tomorrow. COVID-19 pneumonia: Patient is on remdesivir. Today is day 3 of 5. Discussed the case with ID. Holding off on dexamethasone giving her diverticulitis. She will need full 5 days of remdesivir. We will add some Tussionex for cough suppression at her request. Her d-dimer is elevated. Avoiding aggressive anticoagulation in light of her diverticular rupture. We will recheck inflammatory markers tomorrow. Acute hypoxic respiratory failure: Continue with supplemental oxygen as needed. Requirements are still relatively low. Morbid obesity: Stable Hypertension: Resumed her HCTZ from home. Blood pressure still running high. We will add an CALEB inhibitor. Discussed with the patient. Hypothyroidism: Continue levothyroxine.
[2019-11-29] MEDS ORDERED: Lisinopril 5 MG TAB PO SCH (12:15)
[2019-11-29] MEDS ORDERED: Potassium Chloride 20 MEQ TAB PO SCH (12:15)
[2019-11-29] MEDS: Enoxaparin Sodium 40 MG/0.4 ML SYRINGE SC SCH (21:01)
[2019-11-30] MEDS: Piperacillin/Tazobactam 4.5 GM in Sodium Chloride 0.9% 100 ML IVPB SCH ×4 (01:01→20:32)
[2019-11-30] MEDS: Morphine 4 MG/ML VIAL SLOW IVP PRN ×4 (02:26→20:38)
[2019-11-30] MEDS: Levothyroxine Sodium 25 MCG TAB PO SCH (05:34)
[2019-11-30 06:58] LABS: ALT (SGPT) 20 U/L (8-55); AST (SGOT) 19 U/L (5-34); Albumin 3.3 g/dL (3.5-5.0); Alkaline Phosphatase 85 U/L (40-110); Anion Gap 12 mmol/L (10-20); BUN (Urea Nitrogen) 10 mg/dL (7.0-18.7); Bilirubin, Direct 0.4 mg/dL (0.1-0.3); Bilirubin, Total 0.6 mg/dL (0.2-1.2); Calc. Creatinine Clearance 161 mL/min (70-130); Calcium 8.7 mg/dL (7.8-10.44); Carbon Dioxide 29 mmol/L (22-29); Chloride 101 mmol/L (98-107); Estimated GFR-MDRD 79; Glucose 113 mg/dL (70-105); Potassium 3.4 mmol/L (3.5-5.1); Protein, Total 6.8 g/dL (6.0-8.3); Sodium 139 mmol/L (136-145)
[2019-11-30] MEDS: Lisinopril 5 MG TAB PO SCH (08:34)
[2019-11-30] MEDS: Pantoprazole 40 MG VIAL IVP SCH (08:34)
[2019-11-30] MEDS: Hydrochlorothiazide 25 MG TAB PO SCH (08:34)
[2019-11-30] MEDS: Benzonatate 100 MG CAP PO PRN (08:41)
[2019-11-30] MEDS: REMDESIVIR 100 MG in Sodium Chloride 0.9% 250 ML 230 ML IV SCH (12:44)
--- NOTE | 2019-11-30 14:48 | PDOC.HOSPP ---
- Subjective Encounter Date: 11/30/19 Subjective: Patient feels great. Has no significant cough denies any abdominal pain. Breathing comfortably. - Objective Vital Signs & Weight: Vital Signs (12 hours) Temp Pulse Resp BP Pulse Ox 11/30/19 08:00 93 L 11/30/19 03:30 98.3 F 73 18 144/76 H 95 Weight Weight 242 lb 6.4 oz I&O: 11/29/19 11/30/19 12/01/19 06:59 06:59 06:59 Intake Total 1550 1770 440 Balance 1550 1770 440 Result Diagrams: 11/26/19 05:34 11/30/19 05:58 Hospitalist ROS - Medication Medications: Active Medications Generic Name Dose Route Start Last Admin Trade Name Freq PRN Reason Stop Dose Admin Benzonatate 100 mg 11/26/19 17:18 11/30/19 08:41 Tessalon PO 100 mg TIDPRN PRN Administration Cough Chlorphenir/Hydrocodone Polistirex 5 ml 11/27/19 16:01 11/28/19 00:51 Tussionex PO 5 ml Q12H PRN Administration Cough Enoxaparin Sodium 40 mg 11/24/19 21:00 11/29/19 21:01 Lovenox SC 40 mg 2100 KRISTY Administration Guaifenesin/Dextromethorphan 10 ml 11/27/19 18:00 11/28/19 12:46 Diabetic Tussin Dm PO 10 ml Q4H PRN Administration Cough Hydrochlorothiazide 25 mg 11/29/19 09:00 11/30/19 08:34 Hydrochlorothiazide PO 25 mg DAILY KRISTY Administration Piperacillin Sod/Tazobactam 100 mls @ 200 mls/hr 11/24/19 02:00 11/30/19 08: 34 Sod 4.5 gm/ Sodium Chloride IVPB 100 mls 0200,0800,1400,2000 KRISTY Administration Remdesivir 100 Mg In 250 mls @ 250 mls/hr 11/28/19 12:00 11/30/19 12:44 Sodium Chloride 0.9 IV 12/01/19 12:59 250 mls % 250 Ml 230 Ml 1200 KRISTY Administration Levothyroxine Sodium 25 mcg 11/27/19 06:00 11/30/19 05:34 Synthroid PO 25 mcg 0600 KRISTY Administration Lisinopril 5 mg 11/30/19 09:00 11/30/19 08:34 Zestril PO 5 mg DAILY KRISTY Administration Morphine Sulfate 4 mg 11/24/19 01:07 11/30/19 09:58 Morphine SLOW IVP 4 mg Q2H PRN Administration Moderate Pain (4-6) Pantoprazole Sodium 40 mg 11/24/19 09:00 11/30/19 08:34 Protonix IVP 40 mg DAILY KRISTY Administration Sodium Chloride 10 ml 11/24/19 01:07 11/29/19 08:28 Flush - Normal Saline IVF 10 ml PRN PRN Administration Saline Flush - Exam General Appearance: NAD, awake alert Heart: RRR, no murmur, no gallops, no rubs, normal peripheral pulses Respiratory: CTAB, no wheezes, no rales, no ronchi, normal chest expansion, no tachypnea, normal percussion Gastrointestinal: soft, non-tender, non-distended, normal bowel sounds, no palpable masses, no hepatomegaly, no splenomegaly, no bruit Extremities: no cyanosis, no clubbing, no edema Skin: normal turgor Neurological: no focal deficits Musculoskeletal: normal tone, normal strength, no muscle wasting Psychiatric: normal affect, normal behavior, A&O x 3 Hosp A/P (1) Diverticulitis of colon with perforation Code(s): K57.20 - DVTRCLI OF LG INT W PERFORATION AND ABSCESS W/O BLEEDING Status: Acute (2) COVID-19 Code(s): U07.1 - COVID-19 Status: Acute (3) HTN (hypertension) Code(s): I10 - ESSENTIAL (PRIMARY) HYPERTENSION Status: Chronic (4) Hypothyroid Code(s): E03.9 - HYPOTHYROIDISM, UNSPECIFIED Status: Chronic (5) Acute respiratory failure with hypoxia Code(s): J96.01 - ACUTE RESPIRATORY FAILURE WITH HYPOXIA Status: Acute (6) Morbid obesity Code(s): E66.01 - MORBID (SEVERE) OBESITY DUE TO EXCESS CALORIES Status: Acute - Plan Diverticulitis with small perforation: Patient has some small perforation with a very small fluid collection. Appears to be too small to be drained. Clinically she appears to be substantially better. Continue with antibiotics. She is not significantly tender on her abdominal exam. Convert to p.o. antibiotics today. COVID-19 pneumonia: Patient is on remdesivir. Today is day 4 of 5. Discussed the case with ID. Holding off on dexamethasone giving her diverticulitis. She will need full 5 days of remdesivir. Her inflammatory markers are stable. Acute hypoxic respiratory failure: Appears to have good oxygen saturation on room air. Hope to discontinue her oxygen today. She is not symptomatic at all. She does have some morbid obesity and may live at a slightly lower oxygen saturation. Morbid obesity: Stable Hypertension: Resumed her HCTZ from home. Added an CALEB inhibitor. Blood pressure is a little better. We will likely keep her on this dose and let her follow-up with her PCP for further adjustments. Hypothyroidism: Continue levothyroxine. Disposition: Anticipate discharge tomorrow after she completes her Remdesivir.
--- NOTE | 2019-11-30 16:54 | PRG ---
DATE OF SERVICE: 11/30/2019 SUBJECTIVE: Feeling better. Pain in the abdomen has resolved. Very little cough. No dyspnea. Good appetite. No diarrhea. OBJECTIVE: VITAL SIGNS: Vital signs are normal. She does have decrease in O2 saturations. She is on 1 L nasal cannula, but she is actually room air at this time. GENERAL: No distress. LUNGS: Clear. HEART: S1 and S2. Regular rate. ABDOMEN: Without any tenderness whatsoever. EXTREMITIES: Normal. LABORATORY DATA: White cell count 5.8, hemoglobin 11.7, and platelets are 163. D-dimer 3.85. Ferritin down to 244 and CRP is down to 11, currently on Zosyn. ASSESSMENT/DISCUSSION: Diverticulitis with microperforation and COVID infection. Mild clinical course, most likely eligible for discharge. Planning for tomorrow on oral Cipro and Flagyl and she never required treatment for COVID infection and in view of the decrease in inflammatory markers, has a low risk for deterioration in the ensuing days. Job ID: [id number]
[2019-11-30] MEDS: Enoxaparin Sodium 40 MG/0.4 ML SYRINGE SC SCH (20:33)
[2019-12-01] MEDS: Piperacillin/Tazobactam 4.5 GM in Sodium Chloride 0.9% 100 ML IVPB SCH ×3 (02:11→14:31)
[2019-12-01] MEDS: Levothyroxine Sodium 25 MCG TAB PO SCH (05:40)
[2019-12-01] MEDS: Lisinopril 5 MG TAB PO SCH (09:30)
[2019-12-01] MEDS: Hydrochlorothiazide 25 MG TAB PO SCH (09:32)
[2019-12-01] MEDS: Pantoprazole 40 MG VIAL IVP SCH (09:32)
[2019-12-01 09:59] VITALS: BP 149/96; TEMP 98
[2019-12-01] MEDS: REMDESIVIR 100 MG in Sodium Chloride 0.9% 250 ML 230 ML IV SCH (11:00)
--- NOTE | 2019-12-02 04:12 | DIS ---
DATE OF ADMISSION: 11/24/2019 DATE OF DISCHARGE: 12/01/2019 DISCHARGE DIAGNOSES: 1. Diverticulitis with perforation. 2. COVID-19. 3. Acute hypoxic respiratory failure secondary to COVID pneumonia. 4. Hypertension. 5. Hypothyroidism. 6. Morbid obesity. HISTORY OF PRESENT ILLNESS: The patient is a 39-year-old female, who initially presented on to the surgical service with abdominal pain. The CT scan showed diverticulitis at the descending/sigmoid colon junction with increased inflammation and adjacent fluid collection with air consistent with developing abscess, small bowel thickening and mesenteric fat infiltration likely related to acute peritonitis. She was admitted by Dr. García, who did not initially feel there was an indication for surgical intervention. However, the patient did develop a cough and a COVID test was ordered and subsequently returned positive. Chest x-ray revealed bilateral patchy alveolar peripheral infiltrates throughout both lungs consistent with COVID pneumonia. Hospitalists were consulted and the patient was started on supplemental oxygen. Dr. Mauro, the Infectious Disease physician was consulted. The patient was started on remdesivir; however, dexamethasone was held given the diverticular perforation. The patient remained on IV antibiotics for the diverticulitis and no drainage was felt to be indicated as the area of fluid collection was too small and was improving clinically with antibiotics. Over the following several days, the patient tolerated the remdesivir well, her abdominal pain resolved and she was able to come off her oxygen and was felt to be stable for discharge to home. PHYSICAL EXAMINATION: VITAL SIGNS: On the day of discharge, temperature is 98.0, pulse 84, respirations 18, O2 saturation 95% on room air, and BP 149/96. GENERAL: She was awake and alert. HEART: Regular. LUNGS: Clear. ABDOMEN: Benign. EXTREMITIES: No edema. DISPOSITION: The patient is discharged to home. She is to have a regular diet. Her activity level is as tolerated. MEDICATIONS: Include, 1. Cipro 500 mg one p.o. b.i.d. 2. Flagyl 500 mg p.o. t.i.d. 3. She will also have lisinopril 5 mg daily started in the hospital. 4. Levothyroxine 25 mcg p.o. daily. 5. Hydrochlorothiazide 25 mg p.o. daily. ACTIVITY: As tolerated. FOLLOWUP: She will follow up with her provider at [facility] in 3-4 weeks and follow up with Dr. García in his office in 3-4 weeks. The guidelines for discontinuing self-isolation were reviewed. The patient's is also positive and therefore, they will be able to isolate together. She can return to the hospital at anytime she has need to do so. Job ID: [id number]
== END 2019-12-01 13:40 | disposition home or self-care (01) | DRG 177 ==
LOC: ERS 21:51 → SURG A 11-24 02:01 → T4-A 11-26 02:24
PROVIDERS: ADMIT Internal Medicine; ATTEND Internal Medicine
DX: U07.1 COVID-19 (principal); J96.01 Acute respiratory failure with hypoxia; J12.89 Other viral pneumonia; K57.20 Diverticulitis of large intestine with perforation and abscess without bleeding; Z68.41 Body mass index [BMI] 40.0-44.9, adult; I10 Essential (primary) hypertension; E03.9 Hypothyroidism, unspecified; E66.01 Morbid (severe) obesity due to excess calories
CPT/HCPCS: 36415; 71045; 74177; 80048; 80053; 80076; 82728; 83605; 85025; 85379; 86140; 87635; 96365; 96367; 96375; C9113; J0744; J1650; J1885; J2270; J2543; J3490; Q9967; U0003

== ENCOUNTER 2024-04-02 00:16 | Emergency (ER) | payer SELFPAY ==
[2024-04-02] MEDS ORDERED: HYDROcodone/Acetaminophen 5/325 mg Tablet ONE (01:13)
== END 2024-04-02 01:35 | disposition home or self-care (01) ==
LOC: ERS 00:16
DX: M25.562 Pain in left knee (principal); I10 Essential (primary) hypertension; W17.89XA Other fall from one level to another, initial encounter; Y93.01 Activity, walking, marching and hiking; Y92.89 Other specified places as the place of occurrence of the external cause
CPT/HCPCS: 99283